=== PATIENT | male | born 1985 | race Caucasian/White ===

== ENCOUNTER 2017-03-18 21:29 | Emergency (ER) | payer MEDICAID ==
[~2017-03-18] VITALS: Ht 182.9 cm; Wt 93.0 kg
[~2017-03-18 21:29] MED LIST: LORA-114 PO
--- NOTE | 2017-03-18 22:40 | NUR ---
TYLENOL 1 GM PO GIVEN
--- NOTE | 2017-03-18 22:40 | NUR ---
CASEY LOPEZ at bedside for MSE
[2017-03-18] MEDS ORDERED: ACETAMINOPHEN ES 500 MG TABLET ONE (23:00)
[2017-03-19] MEDS ORDERED: ONDANSETRON ODT 4 MG TAB.RAPDIS SL ONE
[2017-03-19] MEDS ORDERED: GUAIFENESIN/CODEINE 5 ML LIQUID UDC PO ONE
[2017-03-19] MEDS ORDERED: KETOROLAC TROMETHAMINE 30 MG INJ IM ONE
[2017-03-19] MEDS ORDERED: KETOROLAC TROMETHAMINE 30 MG INJ ONE (00:18)
[2017-03-19] MEDS ORDERED: ONDANSETRON ODT 4 MG TAB.RAPDIS ONE (00:18)
[2017-03-19] MEDS ORDERED: GUAIFENESIN/CODEINE 5 ML LIQUID UDC ONE (00:19)
[2017-03-19] MEDS ORDERED: ACETAMINOPHEN ES 500 MG TABLET PO ONE (00:30)
--- NOTE | 2017-03-19 00:39 | NUR ---
Patient discharged to home in stable conditon. Written and verbal after care instructions given. Patient verbalizes understanding of instructions. Steady gait. VSS.
[2017-03-19] MEDS ORDERED: ACETAMINOPHEN ES 500 MG TABLET ONE (00:49)
[2017-03-19 03:33] VITALS: BP 112/65
== END 2017-03-19 00:42 | disposition home or self-care (01) ==
LOC: ER 21:30
DX: J11.1 Influenza due to unidentified influenza virus with other respiratory manifestations (principal); Z90.49 Acquired absence of other specified parts of digestive tract
CPT/HCPCS: A4663; J1885; Q0162